=== PATIENT | female | born 1970 | race Caucasian/White ===

== ENCOUNTER → 2019-08-31 | Outpatient (CLI) | payer OTHER | LOC: MC.RAD 07:45 | DX: Z00.00 Encounter for general adult medical examination without abnormal findings (principal); Z12.31 Encounter for screening mammogram for malignant neoplasm of breast; N63.22 Unspecified lump in the left breast, upper inner quadrant ==

== ENCOUNTER → 2019-09-14 | Outpatient (CLI) | payer OTHER | LOC: MC.RAD 10:59 | DX: Z00.00 Encounter for general adult medical examination without abnormal findings (principal); N63.20 Unspecified lump in the left breast, unspecified quadrant | CPT/HCPCS: G0279 ==

== ENCOUNTER 2020-04-02 03:44 | Emergency (ER) | payer OTHER ==
[~2020-04-02] VITALS: Ht 167.6 cm; Wt 86.4 kg
[2020-04-02 03:53] VITALS: BP 121/73; TEMP 98.2
[2020-04-02 04:25] LABS: BASO % 0.4 % (0.0-2.0); EOS # 0.1 (0.0-0.7); EOS % 1.1 % (0-4.0); GRAN # 5.2 (1.4-6.5); GRAN % 69.7 % (42.2-75.2); HEMOGLOBIN 13.9 g/dl (12.5-16.0); LYMPH # 1.5 (1.2-3.4); LYMPH % 20.3 % (20.0-51.0); MEAN CELL VOLUME 85 fl (80.0-100.0); MEAN CORPUSCULAR HEMOGLOBIN 28 pg (27.0-31.0); MEAN CORPUSCULAR HGB CONC 32 g/dl (33.0-37.0); MONO # 0.6 (0.1-0.6); PLATELET COUNT 239 K/mm3 (130-400); RED BLOOD COUNT 5.04 M/mm3 (4.10-5.30); REDCELL DISTRIBUTION WIDTH-CV 14.1 % (11.5-14.5)
[2020-04-02] MEDS ORDERED: ULTRAM 50MG TAB50 MG PO (04:33)
[2020-04-02 04:35] LABS: ALBUMIN 3.9 gm/dL (3.5-5.0); BILIRUBIN,TOTAL 0.4 mg/dL (0.0-1.0); C-REACTIVE PROTEIN 0.9 mg/dL (0.0-0.9); CALCIUM 8.9 mg/dL (8.4-10.2); CREATININE, serum 0.88 (0.52-1.25); POTASSIUM 4.4 mmol/L (3.4-5.0); TOTAL PROTEIN 6.9 gm/dL (6.4-8.2)
[2020-04-02] MEDS ORDERED: NORCO 325 MG-51 TAB PO (07:16)
[2020-04-02] MEDS ORDERED: ZITHROMAX 250M250 MG PO (07:16)
[2020-04-02 08:55] VITALS: PULSE 86
== END 2020-04-02 08:55 | disposition home or self-care (01) ==
LOC: COL.ER 03:44
PROVIDERS: Emergency Medicine
DX: R07.89 Other chest pain (principal)
CPT/HCPCS: J1885; J2405; J2930; J3010; J7030

== ENCOUNTER 2020-10-09 23:26 | Emergency (ER) | payer BC ==
[~2020-10-09] VITALS: Ht 167.6 cm; Wt 88.6 kg
[~2020-10-09 23:26] MED LIST: NORCO 325 MG-51 TAB PO; ULTRAM 50MG TAB50 MG PO; ZITHROMAX 250M250 MG PO
[2020-10-09 23:35] VITALS: TEMP 98
[2020-10-09] MEDS ORDERED: CARAFATE 1GM1 G PO (23:52)
[2020-10-09] MEDS ORDERED: BENTYL 20MG20 MG/TAB PO (23:52)
[2020-10-09] MEDS ORDERED: PROTONIX 40MG T40 MG PO (23:53)
[2020-10-09 23:58] LABS: PROTHROMBIN TIME 10.8 SECONDS (9.7-12.8)
[2020-10-09 23:59] LABS: BASO # 0.1 (0.0-0.2); BASO % 0.6 % (0.0-2.0); EOS # 0.1 (0.0-0.7); EOS % 1.3 % (0-4.0); GRAN # 7.4 (1.4-6.5); HEMATOCRIT 43.3 % (37.0-47.0); HEMOGLOBIN 14.4 g/dl (12.5-16.0); LYMPH # 2.3 (1.2-3.4); LYMPH % 20.6 % (20.0-51.0); MEAN CELL VOLUME 85 fl (80.0-100.0); MEAN CORPUSCULAR HEMOGLOBIN 28 pg (27.0-31.0); MEAN CORPUSCULAR HGB CONC 33 g/dl (33.0-37.0); MEAN PLATELET VOLUME 9.9 fl (7.4-10.4); MONO # 0.9 (0.1-0.6); MONO % 8.5 % (1.7-9.3); PLATELET COUNT 274 K/mm3 (130-400); RED BLOOD COUNT 5.12 M/mm3 (4.10-5.30); REDCELL DISTRIBUTION WIDTH-CV 13.9 % (11.5-14.5)
[2020-10-10 00:01] LABS: PARTIAL THROMBOPLASTIN TIME 30.7 SECONDS (26.0-37.0)
[2020-10-10 00:03] LABS: ALBUMIN 4.3 gm/dL (3.5-5.0); BILIRUBIN,TOTAL 0.5 mg/dL (0.0-1.0); CREATININE, serum 0.92 (0.52-1.25); POTASSIUM 3.8 mmol/L (3.4-5.0); TOTAL PROTEIN 7.3 gm/dL (6.4-8.2)
[2020-10-10 00:15] LABS: TROPONIN-I 0.012 ng/mL (0.000-0.035)
[2020-10-10 00:50] VITALS: BP 115/67
[2020-10-10 02:53] LABS: MUCOUS Present /lpf; PH 5 (5-8); URINE APPEARANCE Cloudy; URINE BACTERIA Rare /hpf; URINE BILIRUBIN Negative (NEGATIVE); URINE BLOOD Negative (NEGATIVE); URINE COLOR Yellow; URINE GLUCOSE Negative (NEGATIVE); URINE KETONE Negative (NEGATIVE); URINE LEUKOCYTE ESTERASE Negative (NEGATIVE); URINE NITRATE Negative (NEGATIVE); URINE PROTEIN(semi-quant) Negative (NEGATIVE); URINE RBC 0-2 /hpf
[2020-10-10] MEDS ORDERED: ROBAXIN 50500 MG/TAB PO (05:36)
[2020-10-10] MEDS ORDERED: MOTRIN 400400 MG/TAB PO (05:36)
[2020-10-10 05:44] VITALS: PULSE 67
[2020-10-10 08:45] LABS: COLLECTION METHOD CLEAN CATCH
== END 2020-10-10 05:44 | disposition home or self-care (01) ==
LOC: COL.ER 23:26
PROVIDERS: Emergency Medicine
DX: J18.9 Pneumonia, unspecified organism (principal); R09.1 Pleurisy; F17.290 Nicotine dependence, other tobacco product, uncomplicated; Z86.16 Personal history of COVID-19; Z86.718 Personal history of other venous thrombosis and embolism
CPT/HCPCS: J1885; J2270